=== PATIENT | female | born 1985 | race Caucasian/White ===

== ENCOUNTER 2025-07-20 09:15 | Emergency (ER) | payer OTHER, SELFPAY ==
[2025-07-20] VITALS (10 sets, daily range): BP systolic 94–147; BP diastolic 55–106
[2025-07-20 10:17] LABS: Hematocrit 39.5 % (37.0-47.0); Hemoglobin 13.9 g/dL (12.0-16.0); Mean Corp Hgb Conc. 35.2 g/dL (33.0-37.0); Mean Corpuscular Volume 87.2 fL (81.0-99.0); Nucleated Red Blood Cells % 0 %; Platelet Count 161 10^3/uL (130-400); Red Cell Dist. Width 13.1 % (11.5-14.5)
[2025-07-20 10:30] LABS: ALT (SGPT) 22 U/L (0-35); AST (SGOT) 22 U/L (14-36); Albumin 4.3 g/dl (3.5-5.0); Alkaline Phosphatase 41 U/L (38-126); Blood Urea Nitrogen 6 mg/dl (7-17); Calcium 9.0 mg/dl (8.4-10.2); Carbon Dioxide 19 mmol/L (22-30); Chloride 105 mmol/L (98-107); Glucose 94 mg/dl (70-99); Potassium 3.9 mmol/L (3.5-5.1); Sodium 133 mmol/L (135-145); Total Protein 7.5 g/dl (6.3-8.2); eGFR > 60.00
--- NOTE | 2025-07-20 11:20 | ED.GENMED ---
History of Present Illness
<KEILA Melendrez - Last Filed: 07/20/25 19:54>
General
Chief Complaint: Urinary Symptoms
Source: patient
Exam Limitations: none
Time Seen by Provider: 07/20/25 11:11
Nursing documentation reviewed up to this point in time: agreed with
History of Present Illness
History of Present Illness:
Patient is a 40-year-old female approximately 18 weeks with a estimated due date of December 20 presents to the ER for evaluation. Patient is from [facility]. She started with urinary frequency on Monday 2 nights ago. She was seen in
the hospital in [place] yesterday and diagnosed with UTI. She was monitored in the OBGYN floor. She has taken 2 doses of Macrobid. She does not swallow pills and therefore opens the capsules up.
Since 3:30 AM however she has been vomiting every 10 minutes and has had abdominal and back pain.
She complains of bilateral back pain worse on the right flank and abdominal pain and cramping. She did have an episode of vaginal bleeding 2 weeks ago and was seen in ER at that time but was told she had a cut on her cervix. She denies any
vaginal bleeding since. She has had normal ultrasounds throughout this .
She did move her bowels this morning
Past History
<KEILA Melendrez - Last Filed: 07/20/25 19:54>
Past History
ED Past Medical History: None
ED Past Surgical History: None
Social History
Tobacco: Non-smoker
Alcohol: None
Drug: None
Living: with family
Phy Exam
<KEILA Melendrez - Last Filed: 07/20/25 19:54>
General Physical Exam
General Presentation: no apparent distress
General age: appears stated age
General Skin: warm and dry
General Habitus: normal
General Mental: alert
General Hydration: appears well hydrated
Course
<KEILA Melendrez - Last Filed: 07/20/25 19:54>
Orders/Labs/Results
Orders:
Orders
07/20/25 09:42
Complete Blood Count/With Diff Urgent
Comprehensive Metabolic Panel Urgent
HCG, Serum Qualitative Screen Urgent
Comment: ADD ON
07/20/25 11:09
Add On- LAB Urgent
Comments:: pt is
Tests Added?: HCG-qualitative
07/20/25 11:20
Electrocardiogram (*1) Stat
Reason for Study: Other
Other Reason for Exam: chest pain
Cardiac Monitoring- Treatment ONCE
EKG- Treatment ONCE
07/20/25 11:24
Ondansetron Injectable [Zofran] 4 mg IV NOW STA
US 2nd/3rd Trimester Urgent
Comment:
Reason For Exam: abd pain
07/20/25 11:30
Heart Tones ONCE
07/20/25 12:26
Urinalysis Reflex To Culture Urgent
Date Specimen was Collected: 07/20/25
Time Specimen was Collected: 09:26
Urine Microscopic Reflex Cult Urgent
Urine Culture Urgent
FENG Source: U
Specimen Description:
Date Specimen was Collected: 07/20/25
Time Specimen was Collected: 09:26
07/20/25 13:27
Morphine Sulfate 2 mg IV NOW STA
US Abdomen - Appendix Only Urgent
Comment:
Reason For Exam: rlq pain
US Abdomen Complete/Upper Urgent
Comment:
Reason For Exam: flank pain/right sided abd pain
07/20/25 13:36
0.9% Sodium Chloride 1000 ml [Nss] 1,000 ml IV BOLUS
07/20/25 17:22
MR Abdomen Without Contrast Urgent
Comment:
Reason For Exam: rlq right flank pain 18 wks
OK for patient to be off Cardiac Monitoring for MRI: Yes
Recent pill cam endoscopy?: No
07/20/25 19:50
Nitrofurantoin Monohydrate [Macrobid] 100 mg PO NOW STA
Abnormal Lab Results
07/20/25 07/20/25
09:42 12:26
MPV 10.7 H fL
(7.4-10.4)
Absolute Neuts (auto) 6.6 H 10^3/uL
(1.4-6.5)
Neutrophils % 76.9 H %
(42.2-75.2)
Lymphocytes % 16.6 L %
(20.5-51.1)
Sodium 133 L mmol/L
(135-145)
Carbon Dioxide 19 L mmol/L
(22-30)
BUN 6 L mg/dl
(7-17)
Creatinine 0.5 L mg/dL
(0.6-1.0)
Urine Ketones 3+ A
(Negative)
Urine WBC (Reflex) 11-15 A /HPF
(0-5)
Urine Bacteria (Reflex) Moderate A
(Negative)
Urine Albumin (Reflex) 1+ A
(Neg - Trace)
07/20/25 09:42
07/20/25 09:42
Vital Signs
Initial and Last Documented VS:
Initial Vital Signs
Temp Pulse Resp BP Pulse Ox
99.0 F 70 17 121/60 99
07/20/25 09:21 07/20/25 09:21 07/20/25 09:21 07/20/25 09:21 07/20/25 09:21
Last Documented Vital Signs
Temp Pulse Resp BP Pulse Ox
99.0 F 71 16 106/60 98
07/20/25 09:21 07/20/25 20:00 07/20/25 20:00 07/20/25 18:00 07/20/25 11:40
Scoop Machine Operator consulted with Physician
Scoop Machine Operator consulted with physician?: Yes
Name of Physician Consulted: Haileyh
<Adam Kay MD - Last Filed: 07/20/25 20:27>
Orders/Labs/Results
Orders:
Orders
07/20/25 09:42
Complete Blood Count/With Diff Urgent
Comprehensive Metabolic Panel Urgent
HCG, Serum Qualitative Screen Urgent
Comment: ADD ON
07/20/25 11:09
Add On- LAB Urgent
Comments:: pt is
Tests Added?: HCG-qualitative
07/20/25 11:20
Electrocardiogram (*1) Stat
Reason for Study: Other
Other Reason for Exam: chest pain
Cardiac Monitoring- Treatment ONCE
EKG- Treatment ONCE
07/20/25 11:24
Ondansetron Injectable [Zofran] 4 mg IV NOW STA
US 2nd/3rd Trimester Urgent
Comment:
Reason For Exam: abd pain
07/20/25 11:30
Heart Tones ONCE
07/20/25 12:26
Urinalysis Reflex To Culture Urgent
Date Specimen was Collected: 07/20/25
Time Specimen was Collected: 09:26
Urine Microscopic Reflex Cult Urgent
Urine Culture Urgent
FENG Source: U
Specimen Description:
Date Specimen was Collected: 07/20/25
Time Specimen was Collected: 09:26
07/20/25 13:27
Morphine Sulfate 2 mg IV NOW STA
US Abdomen - Appendix Only Urgent
Comment:
Reason For Exam: rlq pain
US Abdomen Complete/Upper Urgent
Comment:
Reason For Exam: flank pain/right sided abd pain
07/20/25 13:36
0.9% Sodium Chloride 1000 ml [Nss] 1,000 ml IV BOLUS
07/20/25 17:22
MR Abdomen Without Contrast Urgent
Comment:
Reason For Exam: rlq right flank pain 18 wks
OK for patient to be off Cardiac Monitoring for MRI: Yes
Recent pill cam endoscopy?: No
07/20/25 19:50
Nitrofurantoin Monohydrate [Macrobid] 100 mg PO NOW STA
Abnormal Lab Results
07/20/25 07/20/25
09:42 12:26
MPV 10.7 H fL
(7.4-10.4)
Absolute Neuts (auto) 6.6 H 10^3/uL
(1.4-6.5)
Neutrophils % 76.9 H %
(42.2-75.2)
Lymphocytes % 16.6 L %
(20.5-51.1)
Sodium 133 L mmol/L
(135-145)
Carbon Dioxide 19 L mmol/L
(22-30)
BUN 6 L mg/dl
(7-17)
Creatinine 0.5 L mg/dL
(0.6-1.0)
Urine Ketones 3+ A
(Negative)
Urine WBC (Reflex) 11-15 A /HPF
(0-5)
Urine Bacteria (Reflex) Moderate A
(Negative)
Urine Albumin (Reflex) 1+ A
(Neg - Trace)
07/20/25 09:42
07/20/25 09:42
Vital Signs
Initial and Last Documented VS:
Initial Vital Signs
Temp Pulse Resp BP Pulse Ox
99.0 F 70 17 121/60 99
07/20/25 09:21 07/20/25 09:21 07/20/25 09:21 07/20/25 09:21 07/20/25 09:21
Last Documented Vital Signs
Temp Pulse Resp BP Pulse Ox
99.0 F 71 16 106/60 98
07/20/25 09:21 07/20/25 20:00 07/20/25 20:00 07/20/25 18:00 07/20/25 11:40
<Monica Dove MD - Last Filed: 07/20/25 17:14>
Orders/Labs/Results
Orders:
Orders
07/20/25 09:42
Complete Blood Count/With Diff Urgent
Comprehensive Metabolic Panel Urgent
HCG, Serum Qualitative Screen Urgent
Comment: ADD ON
07/20/25 11:09
Add On- LAB Urgent
Comments:: pt is
Tests Added?: HCG-qualitative
07/20/25 11:20
Electrocardiogram (*1) Stat
Reason for Study: Other
Other Reason for Exam: chest pain
Cardiac Monitoring- Treatment ONCE
EKG- Treatment ONCE
07/20/25 11:24
Ondansetron Injectable [Zofran] 4 mg IV NOW STA
US 2nd/3rd Trimester Urgent
Comment:
Reason For Exam: abd pain
07/20/25 11:30
Heart Tones ONCE
07/20/25 12:26
Urinalysis Reflex To Culture Urgent
Date Specimen was Collected: 07/20/25
Time Specimen was Collected: 09:26
Urine Microscopic Reflex Cult Urgent
Urine Culture Urgent
FENG Source: U
Specimen Description:
Date Specimen was Collected: 07/20/25
Time Specimen was Collected: 09:26
07/20/25 13:27
Morphine Sulfate 2 mg IV NOW STA
US Abdomen - Appendix Only Urgent
Comment:
Reason For Exam: rlq pain
US Abdomen Complete/Upper Urgent
Comment:
Reason For Exam: flank pain/right sided abd pain
07/20/25 13:36
0.9% Sodium Chloride 1000 ml [Nss] 1,000 ml IV BOLUS
07/20/25 17:22
MR Abdomen Without Contrast Urgent
Comment:
Reason For Exam: rlq right flank pain 18 wks
OK for patient to be off Cardiac Monitoring for MRI: Yes
Recent pill cam endoscopy?: No
07/20/25 19:50
Nitrofurantoin Monohydrate [Macrobid] 100 mg PO NOW STA
Abnormal Lab Results
07/20/25 07/20/25
09:42 12:26
MPV 10.7 H fL
(7.4-10.4)
Absolute Neuts (auto) 6.6 H 10^3/uL
(1.4-6.5)
Neutrophils % 76.9 H %
(42.2-75.2)
Lymphocytes % 16.6 L %
(20.5-51.1)
Sodium 133 L mmol/L
(135-145)
Carbon Dioxide 19 L mmol/L
(22-30)
BUN 6 L mg/dl
(7-17)
Creatinine 0.5 L mg/dL
(0.6-1.0)
Urine Ketones 3+ A
(Negative)
Urine WBC (Reflex) 11-15 A /HPF
(0-5)
Urine Bacteria (Reflex) Moderate A
(Negative)
Urine Albumin (Reflex) 1+ A
(Neg - Trace)
07/20/25 09:42
07/20/25 09:42
Vital Signs
Initial and Last Documented VS:
Initial Vital Signs
Temp Pulse Resp BP Pulse Ox
99.0 F 70 17 121/60 99
07/20/25 09:21 07/20/25 09:21 07/20/25 09:21 07/20/25 09:21 07/20/25 09:21
Last Documented Vital Signs
Temp Pulse Resp BP Pulse Ox
99.0 F 71 16 106/60 98
07/20/25 09:21 07/20/25 20:00 07/20/25 20:00 07/20/25 18:00 07/20/25 11:40
<KEILA Melendrez - Last Filed: 07/20/25 19:54>
MDM/Problems Addressed
Differential Diagnosis Includes:
Not limited to renal colic constipation UTI pyelonephritis appendicitis ovarian cyst ovarian torsion
MDM/Problems Addressed:
Patient is document is an 18-week female presenting with abdominal pain vomiting. She initially started with discomfort 2 days ago and was seen in the hospital in [place] where she is from. That time she was monitored in the [employer] unit.
Since 3:30 in the morning she has had pain and vomiting. Patient points across her lower abdomen and reports pain seems to be worse in the right lower quadrant. Case reviewed ED physician. Patient was medicated with Zofran for nausea fluids and
required pain medicine which has helped significantly with her pain. OB ultrasound shows a single live IUP fht 152 ; there is a 3.2 cm simple cyst of the right ovary but normal color and flow was documented. The left ovary was not visualized
however pain is mostly on the right side of her abdomen. The appendix was not visualized on ultrasound. The ultrasound of the abdomen is normal with no hydro to bilateral kidneys.
Case discussed with ED physician who evaluated patient case discussed with radiologist MRI was obtained
MRI is negative for acute appendicitis there is a 3.0 cm simple right ovarian cyst again seen on the MRI there is slight prominence of the bilateral renal collecting systems without overt hydronephrosis.
No clear cause of patient's symptoms however labs are unremarkable. urinalysis does not appear infected though she may continue Macrobid since she was started on this by OBGYN for possible UTI.
She was given copies of her MRI and labs discussed close outpatient follow-up with her [employer] and to return if any worsening of symptoms.
Pt is asking for a new script of macrobid will send to her pharmacy
<KEILA Melendrez - Last Filed: 07/20/25 19:54>
*Radiology
Radiology exam reviewed: radiology read reviewed
*Pulse Oximetry
SaO2: 99
Oxygen Mode of Delivery: Room air
Patient hypoxic: no
*Critical Care Note
Total Time (30-74mins, 75-104mins- exclusive of procedures): Not Applicable
<Monica Dove MD - Last Filed: 07/20/25 17:14>
Update Note
Update Note:
Patient seen and examined by me. She is now completely pain-free status post 2 mg of morphine. This patient developed mild back pain with lower abdominal cramping yesterday, was seen at an outside hospital/L&D and was diagnosed with a UTI, started
on Macrobid. She did note urinary frequency at that time without fevers, chills, sweats, etc. She took Tylenol was feeling better. Then, around 3:30 AM she awoke with back and abdominal pain that has gotten progressively worse such that upon
arrival here she was in 20 out of 10 pain associated with nausea and vomiting. Status post morphine 2 mg here, patient is now pain-free. She denies vaginal bleeding or discharge, chest pain, shortness of breath, fever, chills, dysuria, hematuria.
On exam, abdomen soft, no rebound or guarding, gravid, minimal right lower quadrant tenderness.
ED Attending Note
<KEILA Melendrez - Last Filed: 07/20/25 19:54>
-
Portions of this chart may have been created with voice recognition software.� Occasional wrong word or��sound alike� substitutions may have occurred due to the inherent limitations of voice recognition software.
<Adam Kay MD - Last Filed: 07/20/25 20:27>
ED Attending Note
Patient seen and examined by attending physician: Yes
ED Attending Note:
Pt , approx 18 wks presents to ED secondary to worsening back/flank pain over the past 3 days, along with increased frequency. 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 Pt is currently
visiting from OR. Denies fever/chills. Denies nausea/vomiting. Denies diarrhea. Denies trauma. Denies dizziness. Denies headache. Denies change in behavior.
Physical Exam
General: mild painful distress. afebrile
Head: nc/at. eomi
Neck: supple. normal range of motion.
Heart: s1/s2 regular rate and rhythm
Lungs: no acute respiratory distress. clear bilaterally
Abdomen: normal bowel sounds. mild diffuse tenderness to palpation, R>L
Back diffuse lower back tenderness to palpation. no cva tenderness
Neuro: alert and oriented x 3. no focal neurological deficits
Skin: no rash
Psychiatric: well kept. interactive and cooperative
Extremities: no edema. no calf tenderness.
Will obtain US appendix/abdomen and reassess. If symptoms persist, may need to order MRI abdomen
Discharge Plan
Departure
Patient Disposition: Home (Routine Discharge)
Date of Disposition: 07/20/25
Time of Disposition: 19:51
Patient with high blood pressure during this ER visit?: No
Condition: Fair
Covid-19: Not Applicable
Discharge Problem:
Abdominal pain,
Instructions: Abdominal pain in adults (DC)
Prescriptions:
New
nitrofurantoin monohyd/m-cryst [Macrobid] 100 mg capsule
100 mg PO BID Qty: 14 0RF
No Action
Motrin:
400 mg PO Q6H PRN (Reason: menstral pain)
Nyquil D Cold & Flu Liquid
1 tsp PO HS PRN (Reason: cold)
Referrals:
UNKNOWN - PT DOES,NOT KNOW [Family Provider]
Activity Restrictions/Additional Instructions:
As discussed please continue your Macrobid as previously prescribed. New prescription was sent to your pharmacy take as directed. Please follow-up closely with your [employer] . Give them a call tomorrow to discuss results and today's ER visit.
Return if any worsening of symptoms.
Interventions
Interventions:
*General Assessment Last Done: 07/20/25 09:26
*Neglect/Abuse Screening Last Done: 07/20/25 09:26
*ED COVID-19 Vaccine History Last Done: 07/20/25 09:26
*ED Influenza Vaccine History Last Done: 07/20/25 09:26
[facility] Fall Risk Assessment Tool Last Done: 07/20/25 11:05
*Risk Screen - Suicide (C-SSRS) Last Done: 07/20/25 09:26
*Nursing Disposition Last Done: 07/20/25 20:24
ED-Female Genitourinary Assessment Last Done: 07/20/25 11:05
Discharge Date and Time
Discharge Date/Time: 07/20/25 20:26
Print Language: [id number]
[2025-07-20] MEDS: ZOFRAN 4 MG IV (11:32)
[2025-07-20 11:37] LABS: HCG, Serum Qualitative Screen Positive
[2025-07-20 12:34] LABS: Urine Character Slightly Cloudy (Clear)
[2025-07-20 12:47] LABS: Urine Squamous Cell >30 /LPF (Few)
[2025-07-20 12:48] LABS: Urine Red Blood Cell 0-2 /HPF (0-2)
[2025-07-20] MEDS: MORPHINE SULFATE 2 MG IV (13:37)
[2025-07-20] MEDS: NSS 1000 IV (13:37)
[2025-07-20] MEDS: MACROBID 100 MG PO (20:00)
== END 2025-07-20 20:26 | disposition home or self-care (01) ==
LOC: EMR 09:15
PROVIDERS: EMERGENCY PHYSICIAN Emergency Medicine
DX: O26.892 Other specified pregnancy related conditions, second trimester (principal); R10.9 Unspecified abdominal pain; O34.82 Maternal care for other abnormalities of pelvic organs, second trimester; N83.291 Other ovarian cyst, right side; Z3A.18 18 weeks gestation of pregnancy
CPT/HCPCS: 99284; 96374; 96375; 96361; 74181; 76700; 76705; 76805; 80053; 81003; 81015; 84703; 85025; 87086; 93005